=== PATIENT | female | born 1935 | race African-American/Black ===

== ENCOUNTER 2022-01-16 18:04 | Emergency (ER) | payer MEDICAID, OTHER ==
[~2022-01-16] VITALS: Ht 165.1 cm; Wt 57.0 kg
[2022-01-16] MEDS ORDERED: ACETAMINOPHEN 325MG TABLET PO STA (18:17)
[2022-01-16 18:43] LABS: HEMOGLOBIN. 9.2 g/dL (12.0-16.0); MEAN CORPUSCULAR VOLUME 75.6 fL (81.0-99.0); MEAN PLATELET VOLUME 7.4 fl (7.4-10.4); PLATELET 431 x1000/uL (130-400); RED BLOOD CELL COUNT 3.84 mill/uL (4.2-5.4); RED CELL DISTRIBUTION WIDTH 16.2 % (11.6-14.6)
[2022-01-16 18:49] LABS: CHLORIDE 92 mEq/L (98-107)
[2022-01-16 18:54] LABS: INR 1.2; PROTHROMBIN TIME 12.3 sec (9.6-11.0)
[2022-01-16] MEDS ORDERED: SODIUM CHLORIDE 0.9% 1,000 ML IV ONE (19:45)
[2022-01-16] MEDS ORDERED: VANCOMYCIN 1G PREMIX 200 ML IV ONE (20:00)
[2022-01-16] MEDS ORDERED: PIPERACILLIN/TAZ 3.375G PREMIX 50 ML IV ONE (20:00)
[2022-01-16 20:50] LABS: PLATELET ESTIMATE INCREASED
[2022-01-16 21:01] LABS: CLARITY URINE TURBID (CLEAR); COLOR URINE ORANGE (YELLOW); KETONES URINE TRACE (NEGATIVE); LEUKOCYTE ESTERASE URINE 3+ (NEGATIVE); NITRITE URINE POSITIVE (NEGATIVE); OCCULT BLOOD URINE 3+ (NEGATIVE); PH URINE 5.5 (4.5-8.0); PROTEIN URINE 3+ (NEGATIVE); SPECIFIC GRAVITY URINE 1.018 (1.005-1.030)
[2022-01-17 00:50] VITALS: BP 121/51
== END 2022-01-17 01:07 | disposition short-term general hospital (02) ==
LOC: ER 18:04 → EDBEDREQ 22:03 → EDBEDREQTM 22:03 → EDBEDREQSVC 22:03 → ER 01-17 01:07 → CANBEDREQ 01-18 13:43
DX: A41.9 Sepsis, unspecified organism (principal); N39.0 Urinary tract infection, site not specified; R53.1 Weakness; R53.83 Other fatigue; R50.9 Fever, unspecified; Z20.822 Contact with and (suspected) exposure to COVID-19; I10 Essential (primary) hypertension
CPT/HCPCS: 36415; 71045; 80053; 81003; 83605; 84145; 85025; 85610; 87040; 87077; 87086; 87186; 87426; 93005; 96365; 96367; 99285; C9803; J3370; J7030